=== PATIENT | female | born 1975 | race American Indian/Alaskan Native ===

== ENCOUNTER 2021-03-20 14:42 | Emergency (ER) | payer SELFPAY ==
[2021-03-20 14:48] VITALS: BP 123/81
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
[2021-03-20 16:42] LABS: Amphetamine Screen,Urine Negative; Benzodiazepines Screen,Urine Negative; Cocaine Screen,Urine Negative; Methadone Screen,Urine Negative; Opiate Screen,Urine Negative
[2021-03-20 16:59] LABS: Cannabinoid Screen,Urine Positive
== END 2021-03-20 17:22 | disposition home or self-care (01) ==
LOC: ED 14:42
DX: F12.929 Cannabis use, unspecified with intoxication, unspecified (principal); Z88.2 Allergy status to sulfonamides; Z88.8 Allergy status to other drugs, medicaments and biological substances; Z79.899 Other long term (current) drug therapy
CPT/HCPCS: 80307; 99283